=== PATIENT | female | born 1995 ===

== ENCOUNTER 2020-05-24 18:38 | Inpatient (IN) | payer OTHER ==
[~2020-05-24] VITALS: Ht 157.5 cm; Wt 3.2 kg
[2020-05-24] MEDS ORDERED: PRENATABS RX T1 EACH PO (19:27)
[2020-05-28] MEDS ORDERED: CODE1TAB37 PO (12:17)
[2020-05-28] MEDS ORDERED: IBUPROFEN800 MG PO (12:17)
== END 2020-05-28 12:58 | disposition home or self-care (01) | DRG 788 ==
LOC: LDR 18:38 → O/R 05-25 17:46 → OB/GYN 05-25 18:12
PROVIDERS: ADMIT Obstetrics & Gynecology; ATTEND Obstetrics & Gynecology
PROC: 4A1HXFZ Monitoring of Products of Conception, Cardiac Rhythm, External Approach (ICD-10-PCS; 2020-05-25)
PROC: 3E033VJ Introduction of Other Hormone into Peripheral Vein, Percutaneous Approach (ICD-10-PCS; 2020-05-25)
PROC: 10D00Z1 Extraction of Products of Conception, Low, Open Approach (ICD-10-PCS; principal; 2020-05-25 16:00)
DX: O62.1 Secondary uterine inertia (principal); Z37.0 Single live birth; Z3A.39 39 weeks gestation of pregnancy